=== PATIENT | female | born 1985 | race Caucasian/White ===

== ENCOUNTER 2016-11-26 09:09 | Emergency (ER) | payer OTHER ==
[~2016-11-26 09:09] MED LIST: ACETAMINOPHEN; AMOXICILLIN; BACTRIM DS TABL1 TA2 PO; NAPROXEN PO; NO MEDICATIONS; PRENATAL VITAMI1 TA3 PO
[2016-11-26 10:26] LABS: URINE SOURCE CLEAN CATCH
[2016-11-26 10:29] LABS: URINE APPEARANCE CLEAR; URINE BILIRUBIN NEG (NEG); URINE BLOOD NEG (NEG); URINE COLOR YELLOW; URINE GLUCOSE NEG (NORM); URINE KETONE NEG (NEG); URINE LEUKOCYTE ESTERASE TRACE (NEG); URINE NITRATE NEG (NEG); URINE PH 5.5 (5-8); URINE PROTEIN TRACE (NEG); URINE SPECIFIC GRAVITY >=1.030 (1.003-1.035); URINE UROBILINOGEN 0.2 MG/DL (NORM)
[2016-11-26 10:39] LABS: AMPHETAMINE POS (NEG); BARBITURATES NEG (NEG); BENZODIAZEPINES NEG (NEG); COCAINE NEG (NEG); MARIJUANA NEG (NEG); OPIATES POS (NEG); TRICYCLIC ANTIDEPRESSANTS NEG (NEG); U METHADONE NEG (NEG)
[2016-11-26 10:46] LABS: MICRO INDICATED? YES
[2016-11-26 10:50] LABS: URINE BACTERIA 1+ (NEG); URINE RBC 0-2 /[HPF] (0-2); URINE SQUAMOUS EPITHELIAL CELL OCCAS /[HPF]
[2016-12-30] MEDS ORDERED: NO MEDICATIONS (21:18)
== END 2016-11-26 11:21 | disposition home or self-care (01) ==
LOC: SED 09:09
PROVIDERS: Emergency Medicine
DX: F32.9 Major depressive disorder, single episode, unspecified (principal); F11.10 Opioid abuse, uncomplicated; F17.200 Nicotine dependence, unspecified, uncomplicated
CPT/HCPCS: 80307; 81003; 82947; 84703; 99283

== ENCOUNTER 2016-12-30 21:48 | Emergency (ER) | payer OTHER ==
[2016-12-30 22:46] LABS: URINE SOURCE CLEAN CATCH
[2016-12-30 22:50] LABS: URINE APPEARANCE CLEAR; URINE BILIRUBIN NEG (NEG); URINE BLOOD NEG (NEG); URINE COLOR YELLOW; URINE GLUCOSE NEG (NORM); URINE KETONE NEG (NEG); URINE LEUKOCYTE ESTERASE NEG (NEG); URINE NITRATE NEG (NEG); URINE PH 5.5 (5-8); URINE PROTEIN NEG (NEG); URINE SPECIFIC GRAVITY >=1.030 (1.003-1.035); URINE UROBILINOGEN 0.2 MG/DL (NORM)
[2016-12-30 22:51] LABS: MICRO INDICATED? NO
[2016-12-30 22:59] LABS: AMPHETAMINE NEG (NEG); BARBITURATES NEG (NEG); BENZODIAZEPINES POS (NEG); COCAINE NEG (NEG); MARIJUANA NEG (NEG); OPIATES NEG (NEG); TRICYCLIC ANTIDEPRESSANTS NEG (NEG); U METHADONE NEG (NEG)
[2017-01-01 16:25] LABS: CHLAMYDIA TRACH Not Detected (Not Detected); N GONOR Not Detected (Not Detected)
== END 2016-12-31 00:39 | disposition home or self-care (01) ==
LOC: SED 21:48
PROVIDERS: Emergency Medicine
DX: A59.09 Other urogenital trichomoniasis (principal); I10 Essential (primary) hypertension; F17.200 Nicotine dependence, unspecified, uncomplicated
CPT/HCPCS: 80307; 81003; 84703; 87491; 87591; 87808; 87905; 96372; 99284; J0696

== ENCOUNTER 2017-04-22 10:50 | Emergency (ER) | payer OTHER | END 2017-04-22 14:06 | disposition home or self-care (01) | LOC: SED 10:50 | DX: F11.129 Opioid abuse with intoxication, unspecified (principal) | CPT/HCPCS: 96374; 99283; J2310 ==